=== PATIENT | female | born 1960 | race Caucasian/White ===

== ENCOUNTER 2022-04-05 08:33 | Outpatient (CLI) | payer BC | END 2022-04-05 08:34 | disposition home or self-care (01) | LOC: BICRAD 08:33 | PROVIDERS: ATTEND Internal Medicine | DX: R06.00 Dyspnea, unspecified (principal) | CPT/HCPCS: 71046 ==

== ENCOUNTER 2023-07-01 11:29 | Outpatient (CLI) | payer BC | END 2023-07-01 11:30 | disposition home or self-care (01) | LOC: SCSMRI 11:29 | PROVIDERS: ATTEND Internal Medicine | DX: G43.909 Migraine, unspecified, not intractable, without status migrainosus (principal) | CPT/HCPCS: 70551 ==

== ENCOUNTER 2023-09-13 08:18 | Observation (INO) | payer BC ==
[2023-09-13] MEDS ORDERED: Nitroglycerin 2% Ointment 1 INCH/1 GM Packet ONE (08:40)
[2023-09-13 08:50] LABS: #Basophils 0.1 thou/uL (0.0-0.2); #Eosinphils 0.2 thou/uL (0.0-0.7); #Monocytes 0.6 thou/uL (0.11-0.59); %Basophils 0.7 % (0.0-1.0); %Eosinophils 2.7 % (0.0-10.0); %Lymphocytes 47.6 % (21.0-51.0); %Monocytes 8.2 % (0.0-10.0); %Neutrophils 40.7 % (42.0-75.0); Hematocrit 42.3 % (36.0-47.0); Hemoglobin 13.8 g/dL (12.0-16.0); Mean Corpuscular HGB CONC 32.6 g/dL (32.0-36.0); Mean Corpuscular Hemoglobin 30.5 pg (27.0-31.0); Mean Corpuscular Volume 93.6 fl (78.0-98.0); Mean Platelet Volume 9.7 fL (7.4-10.4); Platelet Count 237 10x3/uL (130-400); RBC Distribution Width 14.3 % (11.5-14.5); Red Blood Cell (RBC) Count 4.52 mill/uL (4.20-5.40); White Blood Cell (WBC) Count 7.3 10x3/uL (4.8-10.8)
[2023-09-13 09:14] LABS: ALT (SGPT) 20 U/L (8-55); AST (SGOT) 17 U/L (5-34); Alkaline Phosphatase 47 U/L (40-110); Anion Gap 9 mmol/L (10-20); BUN (Urea Nitrogen) 20 mg/dL (9.8-20.1); Bilirubin, Total 0.4 mg/dL (0.2-1.2); Calc. Creatinine Clearance 0 mL/min (70-130); Calcium 9.7 mg/dL (7.8-10.44); Carbon Dioxide 27 mmol/L (23-31); Chloride 107 mmol/L (98-107); Estimated GFR 97; Globulin 2.5 g/dL (2.4-3.5); Glucose 99 mg/dL (80-115); Lipase 30 U/L (8-78); Potassium 3.7 mmol/L (3.5-5.1); Protein, Total 6.5 g/dL (5.8-8.1); Sodium 139 mmol/L (136-145)
[2023-09-13 09:18] LABS: Troponin I Less than 0.010 ng/mL (< 0.028)
[2023-09-13] MEDS ORDERED: Ketorolac Tromethamine 30 MG (1 mL) VIAL ONE (09:33)
[2023-09-13] MEDS ORDERED: Nitroglycerin 0.4 MG TAB (25 Tab Bottle) SL PRN (10:30)
[2023-09-13] MEDS ORDERED: Enoxaparin 40 MG (0.4 mL) SYRINGE SC SCH (10:30)
[2023-09-13] MEDS ORDERED: Ondansetron PF 4 MG/2 ML Vial IVP PRN (10:36)
[2023-09-13] MEDS ORDERED: Ondansetron ODT 4 MG TAB PO PRN (10:36)
[2023-09-13 11:12] LABS: Magnesium 2.1 mg/dL (1.6-2.6)
[2023-09-13 11:59] LABS: Troponin I Less than 0.010 ng/mL (< 0.028)
[2023-09-13 14:08] LABS: Troponin I Less than 0.010 ng/mL (< 0.028)
[2023-09-13 14:40] VITALS: BMI 29.5
[2023-09-13] MEDS: Acetaminophen 325 MG TAB PO PRN (15:50)
[2023-09-13 18:10] LABS: Troponin I Less than 0.010 ng/mL (< 0.028)
[2023-09-14 04:04] LABS: #Eosinphils 0.2 thou/uL (0.0-0.7); #Monocytes 0.6 thou/uL (0.11-0.59); #Neutrophils 2.7 thou/uL (1.40-6.50); %Basophils 0.5 % (0.0-1.0); %Eosinophils 2.8 % (0.0-10.0); %Lymphocytes 54.6 % (21.0-51.0); %Monocytes 7.6 % (0.0-10.0); %Neutrophils 34.4 % (42.0-75.0); Hemoglobin 12.3 g/dL (12.0-16.0); Mean Corpuscular HGB CONC 32.4 g/dL (32.0-36.0); Mean Corpuscular Hemoglobin 30.2 pg (27.0-31.0); Mean Corpuscular Volume 93.4 fl (78.0-98.0); Mean Platelet Volume 10.1 fL (7.4-10.4); Platelet Count 224 10x3/uL (130-400); RBC Distribution Width 14.2 % (11.5-14.5); Red Blood Cell (RBC) Count 4.07 mill/uL (4.20-5.40); White Blood Cell (WBC) Count 7.8 10x3/uL (4.8-10.8)
[2023-09-14 05:16] LABS: Anion Gap 7 mmol/L (10-20); BUN (Urea Nitrogen) 15 mg/dL (9.8-20.1); Calc. Creatinine Clearance 100 mL/min (70-130); Calcium 8.9 mg/dL (7.8-10.44); Carbon Dioxide 28 mmol/L (23-31); Cardiac Risk 3.2 (Less than 4.5); Chloride 109 mmol/L (98-107); Cholesterol 140 mg/dl (< 200 Desired); Estimated GFR 93; Glucose 96 mg/dL (80-115); HDL Cholesterol 44 mg/dL (>60 Neg Risk); LDL Cholesterol, Calculated 88 mg/dL; Potassium 3.9 mmol/L (3.5-5.1); Sodium 140 mmol/L (136-145); Triglycerides 42 mg/dL (Less than 150)
[2023-09-14] MEDS: Aspirin Chewable 81 MG TAB PO SCH (07:55)
[2023-09-14 08:28] VITALS: TEMP 97.8
[2023-09-14] MEDS: Enoxaparin 40 MG (0.4 mL) SYRINGE SC SCH (09:15)
[2023-09-14] MEDS: Famotidine 20 MG TAB PO SCH (09:15)
[2023-09-14] MEDS ORDERED: ADENOSINE 60 MG/20 ML SDV ONE (09:27)
[2023-09-14 13:02] VITALS: BP 129/77
[2023-09-14] MEDS ORDERED: Atorvastatin Calcium 40 MG TAB PO SCH (21:00)
[2023-09-15] MEDS ORDERED: Levothyroxine Sodium 75 MCG TAB PO SCH (06:00)
== END 2023-09-14 14:40 | disposition home or self-care (01) ==
LOC: ERS 08:18 → ERHOLD 10:30 → 2SW 10:37
PROVIDERS: ADMIT Internal Medicine; ATTEND Internal Medicine
DX: R07.9 Chest pain, unspecified (principal); E03.9 Hypothyroidism, unspecified; Z86.73 Personal history of transient ischemic attack (TIA), and cerebral infarction without residual deficits; Z90.49 Acquired absence of other specified parts of digestive tract; Z88.0 Allergy status to penicillin; Z79.899 Other long term (current) drug therapy; Z79.890 Hormone replacement therapy; Z90.710 Acquired absence of both cervix and uterus; Z90.89 Acquired absence of other organs; Z79.82 Long term (current) use of aspirin
CPT/HCPCS: 36415; 71045; 78452; 80048; 80053; 80061; 83690; 83735; 84443; 84484; 85025; 85379; 93005; 93017; 94760; 96374; A9502; G0378; J0153; J1885